=== PATIENT | male | born 1970 | race Hispanic/Latino ===

== ENCOUNTER 2021-09-09 08:47 | Emergency (ER) | payer SELFPAY ==
[~2021-09-09] VITALS: Ht 177.8 cm; Wt 86.2 kg
[2021-09-09] MEDS ORDERED: ELIMITE60 GM TOP (09:50)
== END 2021-09-09 09:55 | disposition home or self-care (01) ==
LOC: ER 09:24
DX: S00.86XA Insect bite (nonvenomous) of other part of head, initial encounter (principal); L29.9 Pruritus, unspecified
CPT/HCPCS: 99282